=== PATIENT | female | born 1955 | race Caucasian/White ===

== ENCOUNTER 2019-01-29 12:27 | Emergency (ER) | payer OTHER ==
[2019-01-29] MEDS ORDERED: SODIUM CHLORIDE 0.9% 500 ML IV ONE (12:42)
[2019-01-29] MEDS ORDERED: ONDANSETRON HCL IV 4 MG/2 ML VIAL IV ONE (12:42)
[2019-01-29] MEDS ORDERED: SUCRALFATE 1 G/10 ML UD PO ONE (12:42)
--- NOTE | 2019-01-29 12:45 | Emergency Department Record ---
History of Present Illness - General Chief Complaint: Abdominal Pain Stated Complaint: ABD PAIN Time Seen by Provider: 01/29/19 12:36 Source: Patient Mode of Arrival: Ambulatory Limitations: No limitations - History of Present Illness Initial Comments: The patient is here due to upper AP for the last 6 hours. The pain is constant and sharp and severe. She denies any fever, chills, nausea, vomiting, diarrhea, CP, SOB, or back pain with the AP. The patient states the onset was sudden and she has no hx of similar problems. She has had her GB removed in the past. MD Complaint: Abdominal pain Onset/Timin -: Hour(s) Location: Epigastric Severity scale (1-10): 10 Quality: Aching, Sharp Consistency: Constant Improves With: Nothing Worsens With: Nothing - Related Data Patient : No Home Medications Medication Instructions Recorded Confirmed Last Taken Prednisone 5 mg PO DAILY 01/29/19 01/29/19 01/29/19 Previous Rx's Medication Instructions Recorded Sucralfate [Carafate] 1 gm PO QID #28 tablet 01/29/19 Allergies Allergy/AdvReac Type Severity Reaction Status Date / Time Penicillins Allergy HIVES Verified 01/29/19 12:44 Sulfa (Sulfonamide Allergy HIVES Verified 01/29/19 12:44 Antibiotics) Travel Screening - Travel/Exposure Within Last 30 Days Have you traveled within the last 30 days?: No - Travel/Exposure Within Last Year Have you traveled outside the [place] in the last year?: No - Additonal Travel Details Have you been exposed to anyone with a communicable illness?: No - Travel Symptoms Symptom Screening: None Review of Systems Constitutional: Denies: Chills, Fever Eyes: Denies: Eye discharge ENT: Denies: Congestion Respiratory: Denies: Cough Cardiovascular: Denies: Arrhythmia, Chest pain Endocrine: Denies: Fatigue Gastrointestinal: Reports: Abdominal pain. Denies: Diarrhea, Nausea Genitourinary: Denies: Dysuria Musculoskeletal: Denies: Arthralgia Skin: Denies: Bruising Past Medical History - SOCIAL HISTORY Smoking Status: Never smoker Alcohol Use: None Drug Use: None - [employer] History [employer]AL[employer] history: Reports: uterine fibroids - RESPIRATORY Hx Respiratory Disorders: Yes Hx Asthma: Yes - CARDIOVASCULAR Hx Cardio Disorders: Yes Hx Hypertension: Yes Comment:: "TACHYCARDIA" - NEURO Hx Neuro Disorders: No - GI Hx GI Disorders: Yes Hx Reflux: Yes Hx Irritable Bowel: Yes - Hx Genitourinary Disorders: No - ENDOCRINE Hx Endocrine Disorders: No - MUSCULOSKELETAL Hx Musculoskeletal Disorders: Yes Hx Arthritis: Yes - PSYCH Hx Psych Problems: No - HEMATOLOGY/ONCOLOGY Hx Hematology/Oncology Disorders: No Family Medical History Any Significant Family History?: No Hx Cancer: Grandparents Hx Heart Disease: Father Hx HTN: Father, Mother, Brother/Sister Hx Resp Disorders: Grandparents Physical Exam - General General Appearance: Alert, Oriented x3, Cooperative, No acute distress - Head Head exam: Atraumatic, Normocephalic, Normal inspection - Eye Eye exam: Normal appearance, PERRL, EOMI - ENT Throat exam: Normal inspection. negative: Tonsillar erythema, Tonsillar exudate - Neck Neck exam: Normal inspection, Full ROM. negative: Tenderness - Respiratory Respiratory exam: Normal lung sounds bilaterally. negative: Respiratory distress - Cardiovascular Cardiovascular Exam: Regular rate, Normal rhythm, Normal heart sounds - GI/Abdominal GI/Abdominal exam: Soft, Tenderness (There is diffuse mild upper abdominal tenderness.). negative: Distended, Guarding, Rebound, Rigid - Extremities Extremities exam: Normal inspection, Full ROM, Normal capillary refill. negative: Tenderness Image of Full Body: 1 - Area of pain and tenderness. - Back Back exam: Reports: Normal inspection - Neurological Neurological exam: Alert, Normal gait. negative: Abnormal gait - Psychiatric Psychiatric exam: negative: Anxious - Skin Skin exam: negative: Rash Course Vital Signs 01/29/19 12:32 Temperature 98.5 F Pulse Rate 16 L Respiratory 95 H Rate Blood Pressure 158/94 Pulse Ox 16 L - Reevaluation(s) Reevaluation #1: The patient is doing better at this time. Her AP has mainly resolved and she is resting comfortably. On exam her abdomen is very soft and nontender in all 4 quads along with the Epigastric area. I explained to the patient that her lab work, EKG, and CT are all normal. She is to see her PCP next week for recheck. 03/03/19 14:04 Medical Decision Making - Data Complexity MDM Data: Labs Ordered and/or Reviewed, X-Ray Ordered and/or Reviewed, EKG Ordered and/or Reviewed - Lab Data Result diagrams: 01/29/19 12:51 01/29/19 12:51 - EKG Data -: EKG Interpreted by Me EKG: No Acute Changes, Normal EKG - Radiology Data Radiology results: Report reviewed (EKG: Neg ) Disposition Disposition: Discharge Clinical Impression: Epigastric abdominal pain Disposition: Home, Self-Care Condition: (2) Stable Instructions: Abdominal Pain (ED) Additional Instructions: Please take Tylenol and Carafate for pain and please see your family doctor this week if not better. Return to the ER for any worsening symptoms. Prescriptions: Sucralfate [Carafate] 1 gm PO QID #28 tablet Forms: Patient Portal Access Time of Disposition: 14:07 Quality - Quality Measures Quality Measures: N/A - Blood Pressure Screening View Details: Yes Does Patient Have Any of the Following: Active Dx of HTN Blood Pressure Classification: Hypertensive Reading Systolic Measurement: 158 Diastolic Measurement: 94 Screening for High Blood Pressure: Patient Exclusion, Hx of HTN [[id number]]
[2019-01-29 12:56] LABS: HEMATOCRIT 40.4 % (35.0-47.0); HEMOGLOBIN 14.2 gm/dl (11.6-16.0); MEAN CELL VOLUME 99.8 fl (81-97); MEAN CORPUSCULAR HEMOGLOBIN 35.1 pg (27-33); MEAN CORPUSCULAR HGB CONC 35.1 g/dl (32-36); PLATELET COUNT 270 K/uL (130-400); RED BLOOD COUNT 4.05 M/uL (3.80-5.40); RED CELL DISTRIBUTION WIDTH 12.9 % (11.5-14.5); WHITE BLOOD COUNT W/O DIFF 11.7 K/uL (4.2-12.2)
[2019-01-29 13:05] LABS: PLATELET ESTIMATE NORMAL (NORMAL)
[2019-01-29 13:10] LABS: BLOOD UREA NITROGEN 19 mg/dL (8-23); CREATININE 0.5 mg/dL (0.5-0.9); EST GLOMERULAR FILTRATION RATE > 60 mL/min
[2019-01-29 13:11] LABS: LIPASE 33 U/L (13-60); TOTAL PROTEIN 7.3 g/dL (6.6-8.7)
[2019-01-29 13:13] LABS: GLUCOSE,RANDOM 143 mg/dL (74-109)
[2019-01-29 13:15] LABS: ALT/SGPT 22 U/L (<33)
[2019-01-29 13:16] LABS: ALBUMIN 4.2 g/dL (4.0-5.0); ALKALINE PHOSPHATASE 76 U/L (35-104); AST/SGOT 25 U/L (10.0-35.0); BILIRUBIN,DIRECT < 0.2 mg/dL (0-0.3)
[2019-01-29] MEDS ORDERED: MAGNESIUM HYDROXIDE/AL HYDROX 30 ML, LIDOCAINE VISC 2% 15ML 15 ML PO ONE ×2 (13:30)
--- NOTE | 2019-01-31 07:40 | CT SCAN REPORT ---
EXAM: CT SCAN OF THE ABDOMEN AND PELVIS WITHOUT CONTRAST HISTORY: UPPER ABDOMINAL PAIN AND EPIGASTRIC PAIN. TECHNIQUE: Standard CT imaging of the abdomen and pelvis was performed without contrast. Additional coronal and sagittal reformatted images were also performed. Comparison: None. FINDINGS: Mitral annular calcifications are present. The heart is upper normal in size. There is no pericardial effusion. There is mild atelectasis or scarring at both lung bases. The liver parenchyma is normal. The gallbladder is surgically absent. There is no biliary ductal dilatation. The pancreas. spleen, and adrenal glands are normal. The kidneys and ureters are unremarkable. The aorta is normal in caliber. There is no retroperitoneal lymphadenopathy. The stomach and epigastrium appear within normal limits. The stomach is nondistended. The large and small bowel loops are unremarkable. There is no focal inflammatory change. There is no pneumoperitoneum or ascites. The uterus is surgically absent. The urinary bladder is unremarkable. There is a small fat containing umbilical hernia. Degenerative changes are present within the spine. There are no acute osseous abnormalities. IMPRESSION: 1. NO ACUTE INTRAABDOMINAL PATHOLOGY. 2. SMALL FAT CONTAINING UMBILICAL HERNIA. 3. ADDITIONAL POST SURGICAL AND CHRONIC FINDINGS ABOVE. JOB NUMBER: [id number] [facility]
== END 2019-01-29 14:20 | disposition home or self-care (01) ==
LOC: ER 12:27
DX: R10.13 Epigastric pain (principal); I10 Essential (primary) hypertension
CPT/HCPCS: 99284 ×2; 96374; 83690; 80076; 80048; 85027; 74176; 93005; 93010; J2405